=== PATIENT | male | born 1980 | race Caucasian/White ===

== ENCOUNTER 2017-11-03 23:55 | Emergency (ER) | payer SELFPAY ==
--- NOTE | 2017-11-04 01:15 | RADIOLOGY REPORT ---
EXAMINATION: XR PORTABLE CHEST CLINICAL INFORMATION: Chest pain. COMPARISON: None TECHNIQUE: Portable frontal view of the chest was obtained. FINDINGS: The lungs are well expanded. There is no focal consolidation, edema, or effusion. No pneumothorax. The cardiomediastinal silhouette is within normal limits. No acute osseous abnormality. IMPRESSION: No acute pulmonary findings.
--- NOTE | 2017-11-04 01:59 | ED GENERAL ADULT ---
History of Present Illness General Chief Complaint: General Adult Stated Complaint: PER NEPHEW PT "JUST FAINTED ON NEW MED" Source: patient Exam Limitations: no limitations, language barrier, translation via family member Vital Signs & Intake/Output Vital Signs & Intake/Output Vital Signs Date Time Temp Pulse Resp B/P B/P Pulse O2 O2 Flow FiO2 Mean Ox Delivery Rate 11/04 0004 97.1 73 18 124/78 98 Room Air Allergies Coded Allergies: No Known Allergies (11/04/17) Reconcile Medications Clindamycin HCl 300 MG CAPSULE 1 CAP PO 4 TIMES/DAY dental infection Ibuprofen 800 MG TABLET 1 TAB PO TID PRN pain Triage Note: TRIAGE: PATIENT TO ER FROM HOME W/ FAMILY, ONLY SPEAKS PORTUGUESE AND [place] (NO [place]), FAMILY ASSISTING W/ TRANSLATION. PATIENT REPORTING IS BEING TX FOR TOOTH INFECTION TO L SIDE MOUTH W/ AMOXICILLIN SINCE YESTERDAY (TAKEN TOTAL OF 3 PILLS), LAST TOOK 30-45 MINUTES AGO. REPORTS "S/P TAKING MED, FELT LIKE HE HAD TO GO TO THE BATHROOM AND PASSED OUT." PATIENT PALE AND SLIGHTLY DIAPHORETIC AT THIS TIME, ALERT AND ORIENTED X3 PER FAMILY TRANSLATION. Triage Nurses Notes Reviewed? yes Onset: Abrupt Duration: minute(s): Timing: single episode today Injury Environment: home Severity: moderate Associated Symptoms: diaphoresis, dizziness HPI: 37 yo gentleman in prior good health presents after a fainting episode. He shares that he was diagnosed with a dental infection today. He did not eat hardly at all. He took his first dose of amoxicillin and stood up. He became dizzy, lightheaded, and passed out briefly. He did not injure his head. He is otherwise well, without chest pain, shortness of breath, nausea, vomiting, diarrhea. Past History Travel History Traveled to [place] past 21 day No Medical History Any Pertinent Medical History? see below for history Neurological: NONE EENT: NONE Cardiovascular: NONE Respiratory: NONE Gastrointestinal: NONE Hepatic: NONE Renal: NONE Musculoskeletal: NONE Psychiatric: NONE Endocrine: NONE Blood Disorders: NONE Cancer(s): NONE PRODUCTION SERVICE MANAGER/Reproductive: NONE Surgical History Surgical History: none Psychosocial History What is your primary language Indonesian Tobacco Use: Refused to answer Family History Hx Contributory? No Review of Systems Review of Systems Constitutional: Reports: no symptoms. EENTM: Reports: no symptoms. Respiratory: Reports: no symptoms. Cardiovascular: Reports: no symptoms. GI: Reports: no symptoms. Genitourinary: Reports: no symptoms. Musculoskeletal: Reports: no symptoms. Skin: Reports: no symptoms. Neurological/Psychological: Reports: no symptoms. Hematologic/Endocrine: Reports: no symptoms. Immunologic/Allergic: Reports: no symptoms. All Other Systems: Reviewed and Negative Physical Exam Physical Exam General Appearance: well developed/nourished, no apparent distress Head: atraumatic, normal appearance Eyes: Bilateral: normal appearance. Ears, Nose, Throat: left lower dental tenderness Neck: normal inspection, supple, full range of motion Respiratory: normal breath sounds, chest non-tender, no respiratory distress, quiet respiration, lungs clear Cardiovascular: regular rate/rhythm Gastrointestinal: normal bowel sounds, soft, non-tender, no organomegaly Back: normal inspection, normal range of motion Extremities: normal inspection, normal capillary refill Neurologic/Psych: no motor/sensory deficits, awake Skin: intact, normal color Core Measures ACS in differential dx? No CVA/TIA Diagnosis: No Sepsis Present: No Sepsis Focused Exam Completed? No Progress Differential Diagnoses I considered the following diagnoses in my evaluation of the patient: dental abscess, dehydration, vasovagal episode Plan of Care: Orders Procedure Date/time Status TROPONIN LEVEL 11/04 0001 Complete LIPASE 11/04 0001 Complete HEPATIC FUNCTION PANEL 11/04 0001 Complete D-DIMER 11/04 0001 Complete CBC WITHOUT DIFFERENTIAL 11/04 0001 Complete BASIC METABOLIC PANEL 11/04 0001 Complete AMYLASE 11/04 0001 Complete EKG 11/04 0000 Active Laboratory Tests 11/04/17 0157: Anion Gap 12, Estimated GFR > 60, BUN/Creatinine Ratio 13.3, Glucose 113 H, Calcium 9.9, Total Bilirubin 0.9, Direct Bilirubin 0.3, AST 19, ALT 28, Alkaline Phosphatase 68, Troponin I < 0.01, Total Protein 7.9, Albumin 4.8, Amylase 88, Lipase 173, D-Dimer High Sensitivty < 200, CBC w Diff NO MAN DIFF REQ, RBC 4.73, MCV 89.1, MCH 30.4, MCHC 34.1, RDW 12.9, MPV 8.3, Gran % 81.8 H, Lymphocytes % 10.5 L, Monocytes % 7.0, Eosinophils % 0.4, Basophils % 0.3, Absolute Granulocytes 10.9 H, Absolute Lymphocytes 1.4, Absolute Monocytes 0.9 H, Absolute Eosinophils 0.1, Absolute Basophils 0 Diagnostic Imaging: Viewed by Me: Radiology Read. Discussed w/RAD: Radiology Read. CXR Impression: PATIENT: NATALIIA HAAS PRESENT AGE: 37 PATIENT ACCOUNT NO: [id number] : 82 LOCATION: [facility] ORDERING PHYSICIAN: Daquan Vann MD SERVICE DATE: 11/04/17 EXAM TYPE: RAD - XRY- PORTABLE CHEST XRAY EXAMINATION: XR PORTABLE CHEST CLINICAL INFORMATION: Chest pain. COMPARISON: None TECHNIQUE: Portable frontal view of the chest was obtained. FINDINGS: The lungs are well expanded. There is no focal consolidation , edema, or effusion. No pneumothorax. The cardiomediastinal silhouette is within normal limits. No acute osseous abnormality. IMPRESSION: No acute pulmonary findings. DICTATED BY: Vitaliy Lomax MD DATE/TIME DICTATED:110 PLUG MAKING OPERATOR:JOYCE DATE/TIME TRANSCRIBED:11/04/17110 CONFIDENTIAL, DO NOT COPY WITHOUT APPROPRIATE AUTHORIZATION. <Electronically signed in Other Vendor System> SIGNED BY: Vitaliy Lomax MD 11/04/17Alli Initial ED EKG: normal axis, normal intervals, normal p-waves, normal QRS complex, normal sinus rhythm Departure Departure Disposition: HOME OR SELF CARE Condition: Stable Clinical Impression Primary Impression: Syncope Referrals: Patient Has No Primary Care Dr (PCP/Family) Departure Forms: Customer Survey General Discharge Information Prescriptions: Current Visit Scripts Clindamycin HCl 1 CAP PO 4 TIMES/DAY #40 CAP Ibuprofen 1 TAB PO TID PRN pain #30 TAB Comments 11/04/17, 3:21..... pt feeling better and wishes to go home... discussed at length... labs benign... pt likely had vasovagal event from dehydration... changed abx to clinda from amox... advised hydration and close follow up. Critical Care Note Critical Care Note Critical Care Time: non-applicable
[2017-11-04 02:06] LABS: ABSOLUTE BASOPHIL COUNT 0 /CUMM (0.0-0.2); ABSOLUTE EOSINOPHIL COUNT 0.1 /CUMM (0.0-0.7); ABSOLUTE GRANULOCYTE CT 10.9 /CUMM (1.4-6.5); ABSOLUTE LYMPH COUNT 1.4 /CUMM (1.2-3.4); ABSOLUTE MONOCYTE COUNT 0.9 /CUMM (0.10-0.60); BASOPHIL % 0.3 % (0.0-2.0); EOSINOPHIL % 0.4 % (0-5); GRANULOCYTE % 81.8 % (42.2-75.2); HEMATOCRIT 42.1 % (42-52); MEAN CORPUSCULAR HGB 30.4 PG (27.0-31.0); MEAN CORPUSCULAR HGB CONC 34.1 G/DL (33.0-37.0); MEAN CORPUSCULAR VOLUME 89.1 FL (80.0-94.0); MEAN PLATELET VOLUME 8.3 FL (7.4-10.4); PLATELET COUNT 185 /CUMM (130-400); RBC DISTRIBUTION WIDTH 12.9 % (11.5-14.5); RED BLOOD CELL CT 4.73 /CUMM (4.70-6.10); WHITE BLOOD CELL COUNT 13.4 /CUMM (4.8-10.8)
[2017-11-04] MEDS ORDERED: CLINDAMYCIN HC300 M1 PO (02:21)
[2017-11-04] MEDS ORDERED: IBUPROFEN800 M1 PO (02:21)
[2017-11-04 03:00] VITALS: BP 131/66
== END 2017-11-04 03:31 ==
LOC: ERH 23:55
PROVIDERS: Pediatrics
DX: R55 Syncope and collapse (principal)
CPT/HCPCS: 71045; 93005; 93010; 96374; 96375; J1885